=== PATIENT | male | born 1945 | race Caucasian/White ===

== ENCOUNTER 2020-08-21 11:13 | Outpatient (CLI) | payer MEDICARE, SELFPAY ==
[2020-08-21 11:57] LABS: Alanine Aminotransferase 21 U/L (4-50); Albumin Level 4.6 g/dL (3.5-5.1); Alkaline Phosphatase 76 U/L (38-126); Anion Gap 5 mmol/L (8-16); Aspartate Amino Transferase 36 U/L (17-59); Bilirubin,Total 0.7 mg/dL (0.2-1.3); Blood Urea Nitrogen 11 mg/dL (9-20); Calcium 9.4 mg/dL (8.4-10.2); Carbon Dioxide 30 mmol/L (22-30); Chloride 100 mmol/L (98-107); Cholesterol 213 mg/dL (0-200); Estimated Glomerular Filt Rate > 60; Glucose 101 mg/dL (75-110); HDL Direct 57 mg/dL; Potassium 4.4 mmol/L (3.4-5.0); Sodium 135 mmol/L (137-145); Triglycerides 73 mg/dL (<150)
[2020-08-21 12:08] LABS: LDL Cholesterol Direct 127 mg/dL
[2020-08-21 12:28] LABS: Prostate Specific Antigen 1.1 ng/mL (< OR = 4.0)
== END 2020-08-21 11:14 | disposition home or self-care (01) ==
PROVIDERS: PCP Internal Medicine; Visit Provider Nurse Practitioner
DX: Z12.5 Encounter for screening for malignant neoplasm of prostate (principal); Z79.899 Other long term (current) drug therapy; Z13.220 Encounter for screening for lipoid disorders
CPT/HCPCS: 36415; 80053; 80061; 84153; G0103

== ENCOUNTER → 2021-02-13 04:09 | Outpatient (CLI) | payer MEDICARE, SELFPAY ==
[2021-02-13 18:18] LABS: SARS-CoV-2 RNA PCR Negative
== END ==
PROVIDERS: PCP Internal Medicine; Visit Provider Internal Medicine
DX: Z20.822 Contact with and (suspected) exposure to COVID-19 (principal)
CPT/HCPCS: C9803; U0003; U0005

== ENCOUNTER 2021-02-15 16:58 | Outpatient (CLI) | payer MEDICARE, SELFPAY ==
[2021-02-15 17:30] LABS: Alanine Aminotransferase 75 U/L (4-50); Albumin Level 4.4 g/dL (3.5-5.1); Alkaline Phosphatase 226 U/L (38-126); Anion Gap 9 mmol/L (8-16); Aspartate Amino Transferase 71 U/L (17-59); Bilirubin,Total 0.7 mg/dL (0.2-1.3); Blood Urea Nitrogen 15 mg/dL (9-20); Calcium 10.1 mg/dL (8.4-10.2); Carbon Dioxide 32 mmol/L (22-30); Chloride 90 mmol/L (98-107); Estimated Glomerular Filt Rate > 60; Glucose 94 mg/dL (65-110); Potassium 3.9 mmol/L (3.4-5.0); Sodium 131 mmol/L (137-145)
== END 2021-02-15 16:59 | disposition home or self-care (01) ==
PROVIDERS: PCP Internal Medicine; Visit Provider Internal Medicine
DX: R19.7 Diarrhea, unspecified (principal)
CPT/HCPCS: 36415; 80053

== ENCOUNTER 2021-02-16 10:37 | Outpatient (NON) | payer MEDICARE, SELFPAY | END 2021-02-16 10:38 | disposition home or self-care (01) | LOC: ANHLAB 10:39 | PROVIDERS: PCP Internal Medicine; Visit Provider Internal Medicine | DX: R19.7 Diarrhea, unspecified (principal) | CPT/HCPCS: 87045; 87324; 87427 ==

== ENCOUNTER 2021-04-04 02:45 | Day surgery (SDC) | payer MEDICARE, SELFPAY ==
[2021-03-26 11:24] VITALS: BMI 23.0
--- NOTE | 2021-04-03 13:28 | PM.HPGS ---
History of Present Illness History of Present Illness Consent: Risks, benefits, and alternatives have been discussed and questions answered. Patient agrees to proceed with procedure. Chief complaint: diarrhea, hx colon polyps Narrative: Marco Jaramillo is a 76 year old male for evaluation of diarrhea for past 2 months. He reports 3-6 loose to watery stools daily with associated mild lower abdominal cramping that improves after BM. Stools are not always associated with eating. Reports a few nighttime awakenings. He denies any bloody stools or black stools. He denies any recent antibiotics, recent travel or sick contacts. No N/V/fever. appetite is good, weight is stable. Stool studies and c-diff are negative (recs reviewed). He was started on cholestyramine daily and lomotil but denies any improvement in symptoms. His last colonoscopy was back in [address] Sr[address] He had random colon bx done for c/o diarrhea, bx were positive for collagenous colitis (recs reviewed). He does not recall if he had any treatment at that time. Prior to 2 months ago, he reports one formed stool daily. Father with colon cancer. Review of Systems Review of Systems: All systems reviewed & are unremarkable except as noted in HPI and below PMFSH Past Medical History Medical History Arthritis Generalized osteoarthritis of multiple sites (~2009) History of basal cell cancer Primary osteoarthritis of right knee Primary osteoarthritis, right shoulder Seronegative rheumatoid arthritis of both hands (~08/2018) Surgical History Surgical History History of bunionectomy History of hemorrhoidectomy History of knee replacement Hx of decompression of ulnar nerve Family History Family History Mother Family history of heart disease in male family member before age 55 Family history of arthritis Family history of cardiovascular disease Father Acute myocardial infarction Family history of heart disease in male family member before age 55 Carcinoma of colon Other Family history of malignant neoplasm Social History Social History Smoking status: Former smoker Tobacco type: cigarettes Smokeless tobacco user: chewing tobacco Second hand tobacco smoke exposure: No Smoking end date: 05/26/80 Alcohol intake: current Drinks per week: 20 Alcohol use details: beer Substance use: never Substance use type: does not use Living arrangements: with family Additional living arrangements comments: lives with spouse Gender identity (if verbalized by the patient): Male Sexual Orientation (if Verbalized by the Patient): Straight or Heterosexual Spiritual care concerns: No Agree to blood products: Yes Meds Home Medications and Allergies Home Medications Medication Instructions Recorded Confirmed Type budesonide 3 mg 3 mg PO .COMPLEX #132 ea 03/21/21 04/04/21 Rx capsule,delayed,extended release Allergies Allergy/AdvReac Type Severity Reaction Status Date / Time No Known Allergies Allergy Unknown Verified 04/04/21 09:49 Exam Resp: Auscultation: clear to auscultation bilaterally Cardio: Rate: regular rate Rhythm: regular rhythm GI: GI Palp: Yes Soft to palpation and No Tenderness to palpation present (GI) Assessment and Plan Assessment and plan (1) Chronic diarrhea: Code(s): K52.9 - Noninfective gastroenteritis and colitis, unspecified Status: Acute Assessment and Plan: Colonoscopy with possible biopsy or polypectomy or cautery or injection of substances.
[2021-04-04 09:51] VITALS: BP 143/86; PULSE 80; RESP 18; TEMP 36.9; O2SAT 97; BMI 21.7
[2021-04-04] MEDS: LACTATED RINGERS 1,000 ML 150 ML IV CONT (09:55)
--- NOTE | 2021-04-04 10:34 | WPDANESEPPF ---
Anes - Initial Pre Proc Eval Procedure: Operation Date: 04/04/21 11:00 Proposed Procedures p Colonoscopy - Ron Toledo MD Date/Time: 04/04/21 10:34 Surgeon: Ron Toledo MD Pre Op Diagnosis: diarrhea, hx colon polyps Patient Data Age: 76 Gender: M Height: 1.78 m Weight: 68.9 kg Last Vital Signs Temp 36.9 C 04/04/21 09:51 Pulse 80 04/04/21 09:51 Resp 18 04/04/21 09:51 BP 143/86 H 04/04/21 09:51 Pulse Ox 97 04/04/21 09:51 Allergies Allergy/AdvReac Type Severity Reaction Status Date / Time No Known Allergies Allergy Unknown Verified 04/04/21 09:49 Home Medications Medication Instructions Recorded Confirmed Type budesonide 3 mg 3 mg PO .COMPLEX #132 ea 03/21/21 04/04/21 Rx capsule,delayed,extended release Patient hx anesthesia problems: none Family hx anesthesia problems: none Results Review: All pre-operative results and documents have been reviewed as part of the pre-operative evaluation. [facility], [facility] Past Medical History Medical History Arthritis Generalized osteoarthritis of multiple sites (~2009) History of basal cell cancer Primary osteoarthritis of right knee Primary osteoarthritis, right shoulder Seronegative rheumatoid arthritis of both hands (~08/2018) Surgical History Surgical History History of bunionectomy History of hemorrhoidectomy History of knee replacement Hx of decompression of ulnar nerve Family History Family History Mother Family history of heart disease in male family member before age 55 Family history of arthritis Family history of cardiovascular disease Father Acute myocardial infarction Family history of heart disease in male family member before age 55 Carcinoma of colon Other Family history of malignant neoplasm Social History Social History Smoking status: Former smoker Tobacco type: cigarettes Smokeless tobacco user: chewing tobacco Second hand tobacco smoke exposure: No Smoking end date: 05/26/80 Alcohol intake: current Drinks per week: 20 Alcohol use details: beer Substance use: never Substance use type: does not use Living arrangements: with family Additional living arrangements comments: lives with spouse Gender identity (if verbalized by the patient): Male Sexual Orientation (if Verbalized by the Patient): Straight or Heterosexual Spiritual care concerns: No Agree to blood products: Yes Anes - Eval Final PreProcedure Day of Procedure 04/04/21 10:34 Patient weight: overweight Heart: regular rate and rhythm Lungs: clear to auscultation and normal air movement Airway: Mallampati scale class II Neurological: alert and oriented Last oral intake: >/= 8 hours ASA classification: II Emergent: no Anesthetic plan: proceed Anesthesia type and monitoring: general GIVS Results Review: All pre-operative results and documents have been reviewed as part of the pre-operative evaluation. Informed Consent: The patient's anesthetic plan and its attendant risks and benefits were discussed with the patient/family/POA. Questions were solicited and answers provided to the satisfaction of the patient/family/POA.
[2021-04-04] MEDS: SIMETHICONE ORAL SUSPENSION 20 MG/0.3 ML 30 ML BOTTLE 0.6 ML IRRIGATION (10:53)
[2021-04-04 11:01] VITALS: BP 110/73; PULSE 68; RESP 14; O2SAT 98
[2021-04-04 11:11] VITALS: BP 124/71; PULSE 73; RESP 21; O2SAT 99
[2021-04-04 11:21] VITALS: BP 125/96; PULSE 70; RESP 21; O2SAT 99
== END 2021-04-04 11:30 | disposition home or self-care (01) ==
PROVIDERS: PCP Internal Medicine; Visit Provider Internal Medicine Gastroenterology
PROC: 0DJD8ZZ Inspection of Lower Intestinal Tract, Via Natural or Artificial Opening Endoscopic (ICD-10-PCS; CPT 45378; principal; 2021-04-04 11:00)
DX: K52.9 Noninfective gastroenteritis and colitis, unspecified (principal); K57.30 Diverticulosis of large intestine without perforation or abscess without bleeding; Z80.0 Family history of malignant neoplasm of digestive organs; Z87.891 Personal history of nicotine dependence
CPT/HCPCS: 45380; 88305; 88313; J2704; J7120

== ENCOUNTER 2021-12-10 12:38 | Outpatient (CLI) | payer MEDICARE, SELFPAY ==
[2021-12-10 13:07] LABS: Basophils Percent Auto 0.6 % (0.2-1.2); Eosinophils Absolute Auto 0.1 K/mm3 (0-0.3); Eosinophils Percent Auto 1.5 % (0-4.4); Hematocrit 39.5 % (42.0-52.0); Hemoglobin 13.7 g/dL (14.0-18.0); Immature Granulocyte Absolute 0.03 K/mm3 (0.00-0.031); Immature Granulocyte Percent A 0.4 % (0-0.5); Lymphocytes Absolute Auto 2.48 K/mm3 (0.9-3.2); Lymphocytes Percent Auto 37.2 % (18.3-44.2); Mean Corpuscular HGB Conc 34.7 g/dl (32-36); Mean Corpuscular Hemoglobin 29.4 pg (26-34); Mean Corpuscular Volume 84.8 fl (80-100); Mean Platelet Volume 9.6 fl (7.4-10.4); Monocytes Absolute Auto 0.6 K/mm3 (0.1-0.6); Monocytes Percent Auto 8.7 % (2.6-8.5); Neutrophils Absolute Auto 3.4 K/mm3 (1.3-6.7); Neutrophils Percent Auto 51.6 % (45.5-73.1); Platelet Count Result 207 k/mm3 (150-375); Red Blood Count 4.66 M/mm3 (4.6-6.20); Red Cell Distribution Width 14.4 % (11.5-14.5); White Blood Count 6.7 K/mm3 (4.5-10.0)
[2021-12-10 13:09] LABS: Appearance Urine Clear (Clear); Bilirubin Urine Negative (Negative); Blood Urine Negative (Negative); Color Urine Yellow (Yellow); Glucose Urine UA Negative (Negative); Ketones Urine Negative (Negative); Leukocyte Esterase Ur Negative LEU/UL (NEGATIVE); Nitrate Urine Negative (Negative); Protein Urine Negative (Negative); Urobilinogen Urine 0.2 mg/dL (<2.0)
[2021-12-10 13:17] LABS: Alanine Aminotransferase 23 U/L (6-50); Albumin Level 4.4 g/dL (3.5-5.1); Alkaline Phosphatase 76 U/L (38-126); Anion Gap 10 mmol/L (8-16); Aspartate Amino Transferase 31 U/L (17-59); Bilirubin,Total 0.7 mg/dL (0.2-1.3); Blood Urea Nitrogen 7 mg/dL (9-20); Calcium 8.9 mg/dL (8.4-10.2); Carbon Dioxide 23 mmol/L (22-30); Chloride 100 mmol/L (98-107); Cholesterol 204 mg/dL (0-200); Estimated Glomerular Filt Rate > 60; Glucose 112 mg/dL (65-110); HDL Direct 52 mg/dL; Potassium 4.2 mmol/L (3.4-5.0); Sodium 133 mmol/L (137-145); Triglycerides 108 mg/dL (<150)
[2021-12-10 13:22] LABS: Add Urine Microscopic? NO
[2021-12-10 13:28] LABS: LDL Cholesterol Direct 116 mg/dL
[2021-12-10 13:38] LABS: Iron 95 ug/dL (49-181)
[2021-12-10 13:48] LABS: Percent Iron Saturation 23 % (20-50); Prostate Specific Antigen 1.3 ng/mL (< OR = 4.0); Thyroid Stimulating Hormone 0.905 uIU/mL (0.465-4.680)
[2021-12-10 14:15] LABS: Erythrocyte Sedimentation Rate 11 mm/hr (0-20)
[2021-12-10 14:34] LABS: Folic Acid > 20.0 ng/mL (2.76->20)
[2021-12-13 06:38] LABS: GGT 60 U/L (3-70)
[2021-12-15 17:14] LABS: Testosterone Free 52.6 pg/mL (30.0-135.0); Testosterone Total 411 ng/dL (250-1100)
== END 2021-12-10 12:39 | disposition home or self-care (01) ==
PROVIDERS: PCP Family Medicine; Visit Provider Family Medicine
DX: E78.2 Mixed hyperlipidemia (principal); R74.8 Abnormal levels of other serum enzymes; R35.1 Nocturia; K52.831 Collagenous colitis; N52.9 Male erectile dysfunction, unspecified; R73.01 Impaired fasting glucose
CPT/HCPCS: 36415; 80048; 80061; 80076; 81003; 82607; 82728; 82746; 82977; 83540; 83550; 84153; 84402; 84403; 84443; 85025; 85652

== ENCOUNTER 2022-12-11 06:40 | Outpatient (CLI) | payer MEDICARE, SELFPAY ==
[2022-12-11 07:19] LABS: Appearance Urine Clear (Clear); Bilirubin Urine Negative (Negative); Blood Urine Negative (Negative); Color Urine Yellow (Yellow); Glucose Urine UA Negative (Negative); Ketones Urine Negative (Negative); Leukocyte Esterase Ur Negative LEU/UL (NEGATIVE); Nitrate Urine Negative (Negative); Protein Urine Negative (Negative); Specific Grav Ur 1.007 (1.001-1.035); Urobilinogen Urine 0.2 mg/dL (<2.0); pH Urine 6.5 (5.0-9.0)
[2022-12-11 07:33] LABS: Alanine Aminotransferase 21 U/L (6-50); Albumin Level 4.3 g/dL (3.5-5.1); Alkaline Phosphatase 65 U/L (38-126); Anion Gap 6 mmol/L (8-16); Aspartate Amino Transferase 33 U/L (17-59); Bilirubin,Total 0.5 mg/dL (0.2-1.3); Blood Urea Nitrogen 7 mg/dL (9-20); Calcium 8.8 mg/dL (8.4-10.2); Carbon Dioxide 27 mmol/L (22-30); Chloride 100 mmol/L (98-107); Cholesterol 216 mg/dL (0-200); Estimated Glomerular Filt Rate > 60; Glucose 88 mg/dL (65-110); HDL Direct 57 mg/dL; Potassium 4.2 mmol/L (3.4-5.0); Sodium 133 mmol/L (137-145); Triglycerides 210 mg/dL (<150)
[2022-12-11 07:35] LABS: Iron 60 ug/dL (49-181)
[2022-12-11 07:38] LABS: Basophils Percent Auto 0.5 % (0.2-1.2); Eosinophils Absolute Auto 0.2 K/mm3 (0-0.3); Eosinophils Percent Auto 2.5 % (0-4.4); Hematocrit 36.7 % (42.0-52.0); Hemoglobin 12.2 g/dL (14.0-18.0); Immature Granulocyte Absolute 0.03 K/mm3 (0.00-0.031); Immature Granulocyte Percent A 0.5 % (0-0.5); Lymphocytes Percent Auto 46.2 % (18.3-44.2); Mean Corpuscular HGB Conc 33.2 g/dl (32-36); Mean Corpuscular Hemoglobin 29.9 pg (26-34); Mean Platelet Volume 10.5 fl (7.4-10.4); Monocytes Absolute Auto 0.7 K/mm3 (0.1-0.6); Monocytes Percent Auto 11.2 % (2.6-8.5); Neutrophils Absolute Auto 2.4 K/mm3 (1.3-6.7); Neutrophils Percent Auto 39.1 % (45.5-73.1); Platelet Count Result 210 k/mm3 (150-375); Red Blood Count 4.08 M/mm3 (4.6-6.20); Red Cell Distribution Width 13.1 % (11.5-14.5); White Blood Count 6.1 K/mm3 (4.5-10.0)
[2022-12-11 07:43] LABS: LDL Cholesterol Direct 107 mg/dL
[2022-12-11 07:51] LABS: Hemoglobin A1C 5.1 % (<5.7)
[2022-12-11 07:52] LABS: Percent Iron Saturation 14 % (20-50)
[2022-12-11 08:00] LABS: Prostate Specific Antigen 1.6 ng/mL (< OR = 4.0)
[2022-12-11 08:24] LABS: Vitamin B12 > 1000.0 pg/mL (239-931)
[2022-12-11 12:27] LABS: Add Urine Microscopic? NO
== END 2022-12-11 06:41 | disposition home or self-care (01) ==
PROVIDERS: PCP Family Medicine; Visit Provider Family Medicine
DX: D64.9 Anemia, unspecified (principal); R73.01 Impaired fasting glucose; E78.2 Mixed hyperlipidemia; Z12.5 Encounter for screening for malignant neoplasm of prostate; R35.1 Nocturia; D51.8 Other vitamin B12 deficiency anemias
CPT/HCPCS: 36415; 80048; 80061; 80076; 81003; 82607; 82728; 83036; 83540; 83550; 84153; 84443; 85025; G0103

== ENCOUNTER 2023-12-31 07:36 | Outpatient (CLI) | payer MEDICARE, SELFPAY ==
[2023-12-31 08:15] LABS: Add Urine Microscopic? NO; Appearance Urine Clear (Clear); Bilirubin Urine Negative (Negative); Blood Urine Negative (Negative); Color Urine Yellow (Yellow); Glucose Urine UA Negative (Negative); Ketones Urine Negative (Negative); Leukocyte Esterase Ur Negative LEU/UL (Negative); Nitrate Urine Negative (Negative); Protein Urine Negative (Negative); Specific Grav Ur 1.008 (1.001-1.035); Urobilinogen Urine 0.2 mg/dL (<2.0)
[2023-12-31 08:18] LABS: Basophils Absolute Auto 0.1 K/mm3 (0.0-0.1); Basophils Percent Auto 0.8 % (0.2-1.2); Eosinophils Absolute Auto 0.2 K/mm3 (0-0.3); Hematocrit 40.1 % (42.0-52.0); Hemoglobin 13.7 g/dL (14.0-18.0); Immature Granulocyte Absolute 0.05 K/mm3 (0.00-0.031); Immature Granulocyte Percent A 0.8 % (0-0.5); Lymphocytes Percent Auto 35.2 % (18.3-44.2); Mean Corpuscular HGB Conc 34.2 g/dl (32-36); Mean Corpuscular Hemoglobin 33.2 pg (26-34); Mean Corpuscular Volume 97.1 fl (80-100); Mean Platelet Volume 10.2 fl (7.4-10.4); Monocytes Absolute Auto 0.8 K/mm3 (0.1-0.6); Monocytes Percent Auto 12.6 % (2.6-8.5); Neutrophils Absolute Auto 2.8 K/mm3 (1.3-6.7); Neutrophils Percent Auto 47.6 % (45.5-73.1); Platelet Count Result 198 k/mm3 (150-375); Red Blood Count 4.13 M/mm3 (4.6-6.20); Red Cell Distribution Width 12.6 % (11.5-14.5)
[2023-12-31 08:23] LABS: Alanine Aminotransferase 17 U/L (6-50); Albumin Level 4.3 g/dL (3.5-5.1); Alkaline Phosphatase 61 U/L (38-126); Anion Gap 9 mmol/L (4-12); Aspartate Amino Transferase 27 U/L (17-59); Bilirubin,Total 0.7 mg/dL (0.2-1.3); Blood Urea Nitrogen 8 mg/dL (9-20); Calcium 8.8 mg/dL (8.4-10.2); Carbon Dioxide 28 mmol/L (22-30); Chloride 97 mmol/L (98-107); Cholesterol 215 mg/dL (0-200); Estimated Glomerular Filt Rate > 60; Glucose 86 mg/dL (65-110); HDL Direct 63 mg/dL; Sodium 134 mmol/L (137-145); Triglycerides 87 mg/dL (<150)
[2023-12-31 08:34] LABS: LDL Cholesterol Direct 128 mg/dL
[2023-12-31 09:00] LABS: Iron 72 ug/dL (49-181)
[2023-12-31 09:09] LABS: Percent Iron Saturation 21 % (20-50)
[2023-12-31 09:37] LABS: Folic Acid > 20.0 ng/mL (2.76->20); Vitamin B12 > 1000.0 pg/mL (239-931)
== END 2023-12-31 07:37 | disposition home or self-care (01) ==
LOC: ANHLAB 07:41
PROVIDERS: PCP Family Medicine; Visit Provider Family Medicine
DX: D64.9 Anemia, unspecified (principal); E78.2 Mixed hyperlipidemia; Z12.5 Encounter for screening for malignant neoplasm of prostate; R03.0 Elevated blood-pressure reading, without diagnosis of hypertension
CPT/HCPCS: 36415; 80048; 80061; 80076; 81003; 82607; 82728; 82746; 83540; 83550; 84153; 84443; 85025; G0103

== ENCOUNTER 2025-01-05 09:52 | Outpatient (CLI) | payer MEDICARE, SELFPAY ==
--- OUTSIDE RECORDS SUMMARY | 2025-01-05 10:01 | XMS_ITS | Continuity of Care Document ---
Author Name [facility] Organization [facility] Care Team Providers Care Community Resource Consultant Name Role Phone [facility] Unavailable Unavailable Problems Combined list of problems from [facility] and [facility] facilities. It does not include entries that were removed or entered in error. Problem Status Onset Date Problem Type Date of Resolution Comments Source [facility] Allergic rhinitis Active Condition [facility] Colitis Active Condition [facility] Eczema Active Condition [facility] Erectile dysfunction Active Condition [facility] Osteoarthritis Active Condition [facility] Diagnosis: ICD-10-CM Z00.00 Encntr for general adult medical exam w/o abnormal findings Active Diagnosis [facility] Medications Combined list of outpatient medications from [facility] and [facility] facilities.Medications provided include 1) outpatient medications from the last 15 months, and 2) patient-reported medications. Medication Details Route Status Patient Instructions Prescription Expires Prescription Number Last Dispense Date Ordering Provider Order Date Order Qty Source ACETAMINOPH EN TAB TAKE BY MOUTH FOUR TIMES A DAY NEEDED ORAL ACTIVE MORALESHORACE R 2024 [facility] CALCIUM CITRATE TAB TAKE BY MOUTH ONCE A DAY ORAL ACTIVE HORACE MORALES R [address]24 [facility] CETIRIZINE HCL 10MG TAB TAKE ONE TABLET BY MOUTH ONCE A DAY ORAL ACTIVE MORALESHORACE NICOLE R [address]24 [facility] DUPILUMAB 150MG/ML INJ,SYR,2ML INJECT 300MG (1 SYRINGE) UNDER THE SKIN EVERY OTHER WEEK SUBCUT ANEOUS ACTIVE CARMENHORACE NICOLE R [address]24 [facility] MULTIVITAMI N CAP/TAB TAKE BY MOUTH ONCE A DAY ORAL ACTIVE HORACE MORALES R [address]24 [facility] TADALAFIL (PA-F) TAB TAKE BY MOUTH QW-(OPT) PRN ORAL ACTIVE SINDY CASTANEDA Benton 2021 [facility] VITAMIN E (OTC) CAP,ORAL TAKE BY MOUTH ONCE A DAY ORAL ACTIVE HORACE MORALES LBY R 2024 [facility] Immunizations Combined list of available immunizations from the Department of Defense and Veterans Affairs facilities. Immunization Series Date Given Administered By Site Reaction Lot Number CVX Code Drug Beef Pusher Status Comments Source PNEUMOCOCCAL CONJUGATE PCV21, POLYSACCHARID E [id number] CONJUGATE, PF 2023 327 complet ed HISTORICA L INFORMATI ON - FROM OTHER REGISTRY, [facility] N RSV, BIVALENT, PROTEIN SUBUNIT RSVPREF, DILUENT RECONSTITUTED , 0.5 ML, PF 1 2023 305 complet ed HISTORICA L INFORMATI ON - FROM OTHER [facility], [facility] N COVID-19 (MODERNA), MRNA, LNP-S, PF, 50 MCG/0.5 ML (AGES 12+ YEARS) 7 2023 312 complet ed HISTORICA L INFORMATI ON - FROM OTHER REGISTRY, [facility] N INFLUENZA, HIGH-DOSE, TRIVALENT, PF 1 2023 135 complet ed HISTORICA L INFORMATI ON - FROM OTHER REGISTRY, [facility] N COVID-19 (MODERNA), MRNA, LNP-S, PF, 50 MCG/0.5 ML (AGES 12+ YEARS) 1 2022 312 complet ed HISTORICA L INFORMATI ON - FROM PATIENT'S WRITTEN RECORD, [facility] N INFLUENZA, HIGH-DOSE, QUADRIVALENT, PF 1 2022 197 complet ed HISTORICA L INFORMATI ON - FROM OTHER REGISTRY, [facility] N INFLUENZA, UNSPECIFIED FORMULATION 2022 88 complet ed HISTORICA L INFORMATI ON - FROM PATIENT'S WRITTEN RECORD, [facility] N COVID-19 (MODERNA), MRNA, LNP-S, BIVALENT, PF, 50 MCG/0.5 ML OR 25MCG/0.25 ML DOSE 5 2021 229 complet ed HISTORICA L INFORMATI ON - FROM OTHER [facility], [facility] N INFLUENZA, ADJUVANTED, QUADRIVALENT, PF 1 2021 205 complet ed HISTORICA L INFORMATI ON - FROM OTHER [facility], [facility] N COVID-19 (MODERNA), MRNA, LNP-S, PF, 100 MCG/0.5ML DOSE OR 50 MCG/0.25ML DOSE 4 2021 207 complet ed HISTORICA L INFORMATI ON - FROM OTHER [facility], [facility] N COVID-19 (MODERNA), MRNA, LNP-S, PF, 100 MCG/0.5ML DOSE OR 50 MCG/0.25ML DOSE 3 2020 207 complet ed HISTORICA L INFORMATI ON - FROM OTHER [facility], [facility] N INFLUENZA, HIGH-DOSE, QUADRIVALENT, PF 1 2020 197 complet ed HISTORICA L INFORMATI ON - FROM OTHER REGISTRY, [facility] N COVID-19 (MODERNA), MRNA, LNP-S, PF, 100 MCG/0.5ML DOSE OR 50 MCG/0.25ML DOSE 2 2020 207 complet ed HISTORICA L INFORMATI ON - FROM OTHER [facility], [facility] N COVID-19 (MODERNA), MRNA, LNP-S, PF, 100 MCG/0.5ML DOSE OR 50 MCG/0.25ML DOSE 1 2020 207 complet ed HISTORICA L INFORMATI ON - FROM OTHER [facility], [facility] N INFLUENZA, UNSPECIFIED FORMULATION 2019 88 complet ed [facility] INFLUENZA, HIGH-DOSE, TRIVALENT, PF 2 2018 135 complet ed HISTORICA L INFORMATI ON - FROM OTHER [facility], [facility] N INFLUENZA, ADJUVANTED, TRIVALENT, PF 1 2018 168 complet ed HISTORICA L INFORMATI ON - FROM OTHER REGISTRY, [facility] INFLUENZA, UNSPECIFIED FORMULATION 2018 88 complet ed [facility] INFLUENZA, UNSPECIFIED FORMULATION 2 2017 88 complet ed HISTORICA L INFORMATI ON - FROM OTHER [facility], [facility] N INFLUENZA, UNSPECIFIED FORMULATION 2017 88 complet ed [facility] INFLUENZA, HIGH-DOSE, TRIVALENT, PF 1 2017 135 complet ed HISTORICA L INFORMATI ON - FROM OTHER REGISTRY, [facility] N INFLUENZA, HIGH-DOSE, TRIVALENT, PF 1 2016 135 complet ed HISTORICA L INFORMATI ON - FROM OTHER REGISTRY, [facility] N INFLUENZA, HIGH-DOSE, TRIVALENT, PF 1 2015 135 complet ed HISTORICA L INFORMATI ON - FROM OTHER REGISTRY, [facility] N TDAP 1 2015 115 complet ed HISTORICA L INFORMATI ON - FROM OTHER REGISTRY, [facility] Encounters Combined list of: 1) Encounters from Department of [facility] Affairs facilities going backup to the last 18 months, not all [place] inpatient encounters are included; 2) Encounters from the Department of Defense facilities going backup to 280 months. Location Location Details Encounter Type Encounter Number Reason For Visit Attending Provider ADM Date DC Date Status Disposition Source [facility] Outpatient Encounter [id number] 02/23 [facility] Outpatient Encounter [id number] 03/09 [facility] Outpatient Encounter [id number] 04/12 [facility] SYNCH AUDIO-ONLY EST LOW 20 [id number] Diagnos is: ICD-10- CM Z00.00 Encntr for general adult medical exam w/o abnorma l finding s LETICIA MORALES 06/01 [facility] Outpatient Encounter [id number] 07/19 [facility] Outpatient Encounter [id number] 07/19 [facility] Social History Combined list of available smoking, tobacco, and other social history from Department of Defense and Veterans Affairs facilities. Social History Type Response Date Comment Sour e Tobacco smoking status NHIS VA-TOBACCO USE FORMER CIGARETTES 06/01/2024 [facility] History of tobacco use [place]-TOBACCO NEVER USED OTHER TYPE 06/01/2024 [facility] History of tobacco use [place]-TOBACCO FORMER USER 04/30/2023 [facility] History of tobacco use VA-TOBACCO NEVER USED 05/03/2022 [facility] History of tobacco use VA-TOBACCO NEVER USED 07/07/2020 [facility] History of tobacco use [place]-TOBACCO QUIT 15 YRS OR MORE 07/02/2018 [facility] History of tobacco use [place]-TOBACCO FORMER USER 05/07/2018 [facility] Plan of Care List of future care activities from Department of [facility] facilities. Additional future care activities may be listed in the Assessment and Plan section. Date/Time Care Activity Care Activity Detail Facili ty 06/02/2025 AMBULATORY - MEDICINE AMBULATORY - MEDICI NE [facility]
--- OUTSIDE RECORDS SUMMARY | 2025-01-05 10:01 | XMS_ITS | Clinical Summary ---
Author Organization [facility] Address [address] [place] [address] Care Team Providers Care Grocery Supervisor Name Role Phone None, Provider MD Primary Care Provider Unavaila ble Allergies Active Allergy Reactions Criticality Noted Date Comments Epinephrine Other (see comment) Low 11/15/2019 Caused painful urination, states he thinks because of swollen prostate. Medications Remus-3 Fatty Acids (HM FISH OIL) 1000 MG Cap Take 1 capsule by mouth daily. 01/20/2017 Active multi vitamin/mineral s (MULTI-VITAMIN DAILY) tablet Take 1 tablet by mouth daily. 01/20/2017 Active calcium carbonate (CALCIUM 600) 600 MG tablet Take 1 tablet by mouth 2 (two) times daily. 01/20/2017 Active diclofenac sodium 1 % gel As needed 10/30/2018 Acti ve diclofenac XR 100 MG 24 hr tablet Take 100 mg by mouth daily. 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 Eye exam, routine 06/24/2017 BPH (benign prostatic hyperplasia) 04/23/2017 Urinary hesitancy 04/23/2017 Urinary incontinence 04/23/2017 Thoracic spine pain 01/20/2017 Allergic rhinitis 09/19/2016 BMI 20.0-20.9, adult 02/09/2016 Basal cell carcinoma of nose 02/09/2016 Immunizations Immunization Administration Dates Next Due Fluzone High Dose - >Age 65 (Prefilled Syringe) 03/06/2019 Influenza (Generic) 02/28/2016 Influenza Adult (Generic) 02/24/2018,02/05/2017 Tdap (Generic) 12/25/2015 Family History Medical History Relation Comments Colon Cancer Father Heart Disease Father None Mother Relation Status Comments Father Mother Social History Tobacco Use Types Packs/Day Years Used Date Smoking Tobacco: Never Smokeless Tobacco: Current Chew Tobacco Cessation:Ready to Q uit: No; Counseling Given: Yes Alcohol Use Standard Drinks/Week Comments Yes 0 (1 standard drink = 0.6 oz pure alcohol) Nightly, drinks 1 beer per night PHQ-2 Answer Date Recorded PHQ-2 Score - If the patient scores above 3, please move on to questions 3-9 0 11/15/2019 Sex and Gender Information Value Date Recorded Sex Assigned at Male 12/18/2018 11:07 AM CDT Legal Sex Male 4:57 PM CDT Gender Identity Male 12/18/2018 11:07 AM CDT Sexual Orientation Straight 12/18/2018 11 :07 AM CDT Last Filed Vital Signs Vital Sign Reading Time Taken Comments Blood Pressure 136/88 11/15/2019 10:32 AM CDT Pulse 72 11/15/2019 10:32 AM CDT Temperature 36.7 C (98 F) 11/15/2019 10:32 AM CDT Respiratory Rate 18 11/15/2019 10:3 2 AM CDT Oxygen Saturation 98% 11/15/2019 10: 32 AM CDT Inhaled Oxygen Concentration - - Weight 69.3 kg (152 lb 12.8 oz) 020 10:32 AM CDT Height 177.8 cm (5' 10) 11/15/2019 10: 32 AM CDT Body Mass Index 21.92 11/15/2019 10:32 AM CDT Plan of Treatment Health Maintenance Due Date Last Done Comments Hepatitis C 1963 Pneumococcal Vaccine: 50+ Ye ars (1 of 1 - PCV) 1996 Zoster Vaccines (1 of 2) 1996 Annual Medicare Wellness Visit 2011 RSV Immunization or 60+ Years (1 - 1-dose 75+ series) 2021 COVID-19 Vaccine ( - 2023-2 5 season) 2024 DTaP, Tdap and Td Vaccines ( 2 - Td or Tdap) 12/24/2025 12/25/2015 Colorectal Cancer Screening Colonoscopy (10 Years) Discontinued Meningococcal B Vaccine Aged Out No l onger eligible based on patient's age to complete this topic Meningococcal Vaccine Aged Out No juan c avi eligible based on patient's age to complete this topic RSV Immunizations Under 20 Months Aged Out No longer eligible based on patient's age to complete this topic Procedures Procedure Name Priority Date/Time Associated Diagnosis Comments COLONOSCOPY Routine BANK CASHIER from Last 3 Months or Most Recently Relevant to Health Maintenance Results * Colonoscopy ( BANK CASHIER) Narrative [facility] TO EPIC CONVERSION - BANK CASHIER Documented hx of procedure Procedure Note Alli Roy MD - 03/29/2018 Documented hx of procedure us Generic Conversion Md ROY GI PROCEDURE ORDERABLES Final Result [facility] TO EPIC CONVERSION from Last 3 Months or Most Recently Relevant to Health Maintenance Insurance [employer] Care Teams Grocery Supervisor Relationship Specialty Start Date End Date None, Provider, PCP - General UNKNOWN PHYSICIAN SPECIALTY 04/16/23
[2025-01-05 10:22] LABS: Hematocrit 38.3 % (42.0-52.0); Hemoglobin 13.4 g/dL (14.0-18.0); Immature Granulocyte Percent A 0.6 % (0-0.5); Lymphocytes Absolute Auto 1.86 K/mm3 (0.9-3.2); Mean Corpuscular HGB Conc 35.0 g/dl (32-36); Mean Corpuscular Hemoglobin 31.8 pg (26-34); Mean Corpuscular Volume 91.0 fl (80-100); Nucleated Red Blood Cells Absolute Auto 0.000 K/mm3 (0.0-0.012); Nucleated Red Blood Cells Perc 0.0 % (0.0-0.2); Platelet Count Result 201 k/mm3 (150-375); Red Blood Count 4.21 M/mm3 (4.6-6.20); White Blood Count 5.2 K/mm3 (4.5-10.0)
[2025-01-05 10:24] LABS: Add Urine Microscopic? NO; Appearance Urine Clear (Clear); Glucose Urine UA Negative (Negative); Leukocyte Esterase Ur Negative LEU/UL (Negative); Nitrate Urine Negative (Negative); Specific Grav Ur 1.006 (1.001-1.035)
[2025-01-05 10:42] LABS: Iron 90 ug/dL (49-181)
[2025-01-05 10:44] LABS: Alanine Aminotransferase 17 U/L (6-50); Albumin Level 4.5 g/dL (3.5-5.1); Alkaline Phosphatase 70 U/L (38-126); Anion Gap 9 mmol/L (4-12); Aspartate Amino Transferase 33 U/L (17-59); Bilirubin,Total 0.7 mg/dL (0.2-1.3); Blood Urea Nitrogen 8 mg/dL (9-20); Calcium 9.0 mg/dL (8.4-10.2); Carbon Dioxide 24 mmol/L (22-30); Chloride 97 mmol/L (98-107); Cholesterol 240 mg/dL (0-200); Estimated Glomerular Filt Rate > 60; Glucose 94 mg/dL (65-110); HDL Direct 47 mg/dL; Potassium 4.3 mmol/L (3.4-5.0); Sodium 130 mmol/L (137-145); Total Protein 7.9 g/dL (6.3-8.2); Triglycerides 141 mg/dL (<150)
[2025-01-05 10:52] LABS: Percent Iron Saturation 28 % (20-50)
[2025-01-05 11:19] LABS: Prostate Specific Antigen 1.7 ng/mL (< OR = 4.0); Thyroid Stimulating Hormone 1.680 uIU/mL (0.465-4.680)
[2025-01-05 11:23] LABS: Ferritin 114.00 ng/mL (11.1-264)
[2025-01-05 12:10] LABS: Vitamin B12 > 1000.0 pg/mL (239-931)
== END 2025-01-05 09:53 | disposition home or self-care (01) ==
PROVIDERS: PCP Family Medicine; Visit Provider Family Medicine
DX: E78.2 Mixed hyperlipidemia (principal); D64.9 Anemia, unspecified; Z12.5 Encounter for screening for malignant neoplasm of prostate; R03.0 Elevated blood-pressure reading, without diagnosis of hypertension
CPT/HCPCS: 36415; 80048; 80061; 80076; 81003; 82607; 82728; 82746; 83540; 83550; 84153; 84443; 85025; G0103